=== PATIENT | female | born 1960 | race Caucasian/White ===

== ENCOUNTER 2025-02-07 17:37 | Emergency (ER) | payer OTHER, SELFPAY ==
[2025-02-07 17:46] VITALS: BP 171/86
[2025-02-07 20:24] VITALS: BP 165/87
--- NOTE | 2025-02-07 20:33 | ED.GENMED ---
History of Present Illness
General
Chief Complaint: DVT/Possible Blood Clot
Source: patient
Time Seen by Provider: 02/07/25 20:32
History of Present Illness
History of Present Illness:
64-year-old female presents to the emergency room complaining of pain behind her left leg around the calf. No trauma. No new activity. She does endorse being around her grandchild and picking the grandchild up a lot. Pain significant fairly
suddenly last week and has not gotten any better. No chest pain or shortness of breath. No recent travel.
Past History
Past History
ED Past Medical History: Cancer and Other (Tachycardia, hypertension, migraines, thyroid rash, liver cyst)
ED Past Surgical History: Appendectomy and Gynecological
Social History
Tobacco: Non-smoker
Drug: None
Personal:
Living: with family
Phy Exam
Physical Exam
Physical Exam:
General: Awake, Alert, Oriented X3. No acute distress.
Vitals: unremarkable
Head: Atraumatic
Eyes: Pupils equal, EOMI
Throat: Airway intact, no exudates
Neck: Trachea midline
Lungs: Clear and equal b/l
Heart: Regular rate, no murmurs
Abd: Soft, Nontender, No pulsatile mass
Neuro: Nonfocal
Skin: Warm, dry, no rash
Extremities: pulses equal b/l, no edema. Mild tenderness to palpation posterior left calf. No palpable cord or mass. No rash.
Course
Orders/Labs/Results
Orders:
Orders
02/07/25 17:50
Legs, left US [US Periph Venous LOWER Ext LT] Urgent
Comment:
Reason For Exam: left calf pain/tenderness for 1 week
02/07/25 20:47
Richard Wrap Left-Treatment ONCE
Vital Signs
Initial and Last Documented VS:
Initial Vital Signs
Temp Pulse Resp BP Pulse Ox
98.7 F 85 18 171/86 100
02/07/25 17:46 02/07/25 17:46 02/07/25 17:46 02/07/25 17:46 02/07/25 17:46
Last Documented Vital Signs
Temp Pulse Resp BP Pulse Ox
98.7 F 81 16 165/87 98
02/07/25 17:46 02/07/25 20:24 02/07/25 20:24 02/07/25 20:24 02/07/25 20:35
MDM/Problems Addressed
Differential Diagnosis Includes:
Muscle strain, DVT, Villeda's cyst
MDM/Problems Addressed:
Ultrasound shows a Villeda's cyst. No other acute abnormality. Exam is fairly benign. Discharge with an Richard wrap, NSAIDs and Tylenol as needed
*Radiology
Radiology exam reviewed: radiology read reviewed
*Pulse Oximetry
SaO2: 98
Oxygen Mode of Delivery: Room air
Patient hypoxic: no
*Critical Care Note
Total Time (30-74mins, 75-104mins- exclusive of procedures): Not Applicable
ED Attending Note
-
Portions of this chart may have been created with voice recognition software.� Occasional wrong word or��sound alike� substitutions may have occurred due to the inherent limitations of voice recognition software.
Discharge Plan
Departure
Patient Disposition: Home (Routine Discharge)
Date of Disposition: 02/07/25
Time of Disposition: 20:46
Patient with high blood pressure during this ER visit?: No
Condition: Good
Discharge Problem:
Acute leg pain, Villeda's cyst
Instructions: Villeda's Cyst (DC)
Prescriptions:
No Action
metoprolol succinate 100 MG tablet extended release 24 hr
100 mg PO DAILY Qty: 30 0RF
levothyroxine [Synthroid] 50 MCG tablet
50 mcg PO DAILY
Referrals:
Jimmy Nunez MD [Active, Orthopedics]
Jazmin Hoyos, DO [Family Provider, Family Practice]
Activity Restrictions/Additional Instructions:
You can take 400 mg of ibuprofen and 650 mg of acetaminophen every 6 hours for pain. Weight-bear as tolerated.
Interventions
Interventions:
*Risk Screen - Suicide Last Done: 02/07/25 17:46
*General Assessment Last Done: 02/07/25 17:46
*Neglect/Abuse Screening Last Done: 02/07/25 17:46
*ED- Fall Risk Assessment Last Done: 02/07/25 20:23
*ED COVID-19 Vaccine History Last Done: 02/07/25 20:23
*Nursing Disposition Last Done: 02/07/25 20:57
ED- Cardiac Assessment Last Done: 02/07/25 20:23
ED- Pulmonary Assessment Last Done: 02/07/25 20:23
ED-Peripheral Vascular Assessment Last Done: 02/07/25 20:23
ED-Skin Assessment Last Done: 02/07/25 20:23
Discharge Date and Time
Discharge Date/Time: 02/07/25 20:58
Print Language: MARTINIQUAIS
== END 2025-02-07 20:58 | disposition home or self-care (01) ==
LOC: EMR 17:37
PROVIDERS: EMERGENCY PHYSICIAN Emergency Medicine; FAMILY PHYSICIAN Family Medicine
DX: M71.22 Synovial cyst of popliteal space [Baker], left knee (principal); I10 Essential (primary) hypertension; Z90.49 Acquired absence of other specified parts of digestive tract; M79.662 Pain in left lower leg
CPT/HCPCS: 99284; 93971